=== PATIENT | female | born 1985 | race Caucasian/White ===

== ENCOUNTER 2021-07-12 11:41 | Outpatient (CLI) | payer OTHER | END 2021-07-12 12:23 | disposition home or self-care (01) | LOC: NST 11:41 | PROVIDERS: ATTEND Obstetrics & Gynecology | DX: Z34.83 Encounter for supervision of other normal pregnancy, third trimester (principal) ==

== ENCOUNTER 2021-07-16 11:28 | Outpatient (CLI) | payer OTHER | END 2021-07-16 12:24 | disposition home or self-care (01) | LOC: NST 11:28 | PROVIDERS: ATTEND Obstetrics & Gynecology Maternal & Fetal Medicine | DX: Z34.83 Encounter for supervision of other normal pregnancy, third trimester (principal) ==

== ENCOUNTER 2021-07-17 11:21 | Outpatient (CLI) | payer OTHER | END 2021-07-17 12:47 | disposition home or self-care (01) | LOC: NST 11:21 | PROVIDERS: ATTEND Obstetrics & Gynecology Maternal & Fetal Medicine | DX: Z34.83 Encounter for supervision of other normal pregnancy, third trimester (principal) ==

== ENCOUNTER 2021-07-19 11:01 | Outpatient (CLI) | payer OTHER ==
[2021-07-20] MEDS ORDERED: PRENATAL TABLE1 EAC1 PO (10:56)
[2021-07-20] MEDS ORDERED: IRON325 MG PO (10:58)
[2021-07-20] MEDS ORDERED: SYNTHROID150 MCG PO (11:05)
[2021-07-20] MEDS ORDERED: SYNTHROID175 MCG PO (11:10)
== END 2021-07-19 11:55 | disposition home or self-care (01) ==
LOC: NST 11:01
PROVIDERS: ATTEND Obstetrics & Gynecology Maternal & Fetal Medicine
DX: Z34.83 Encounter for supervision of other normal pregnancy, third trimester (principal)

== ENCOUNTER 2021-07-20 09:40 | Inpatient (IN) | payer OTHER ==
[~2021-07-20] VITALS: Ht 165.1 cm; Wt 81.6 kg
[2021-07-20] MEDS ORDERED: PRENATAL TABLE1 EAC1 PO (10:56)
[2021-07-20] MEDS ORDERED: IRON325 MG PO (10:58)
[2021-07-20] MEDS ORDERED: SYNTHROID150 MCG PO (11:05)
[2021-07-20] MEDS ORDERED: SYNTHROID175 MCG PO (11:10)
== END 2021-07-22 10:36 | disposition home or self-care (01) | DRG 807 ==
LOC: OB/GYN 09:40 → LDR 09:40 → OB/GYN 18:02
PROVIDERS: ADMIT Obstetrics & Gynecology Maternal & Fetal Medicine; ATTEND Obstetrics & Gynecology Maternal & Fetal Medicine
PROC: 10E0XZZ Delivery of Products of Conception, External Approach (ICD-10-PCS; principal; 2021-07-20)
PROC: 0UQG7ZZ Repair Vagina, Via Natural or Artificial Opening (ICD-10-PCS; 2021-07-20)
PROC: 10907ZC Drainage of Amniotic Fluid, Therapeutic from Products of Conception, Via Natural or Artificial Opening (ICD-10-PCS; 2021-07-20)
PROC: 3E033VJ Introduction of Other Hormone into Peripheral Vein, Percutaneous Approach (ICD-10-PCS; 2021-07-20)
PROC: 4A1HXFZ Monitoring of Products of Conception, Cardiac Rhythm, External Approach (ICD-10-PCS; 2021-07-20)
DX: O71.4 Obstetric high vaginal laceration alone (principal); Z37.0 Single live birth; O48.0 Post-term pregnancy; Z3A.39 39 weeks gestation of pregnancy

== ENCOUNTER 2023-06-26 09:00 | Inpatient (IN) | payer OTHER ==
[~2023-06-26] VITALS: Ht 165.1 cm; Wt 89.4 kg
[2023-07-20 11:09] LABS: HEMATOCRIT 34.3 % (36.0-45.00); HEMOGLOBIN 11.8 g/dL (12.0-15.00); MEAN CORPUSCULAR HEMOGLOBIN 31.3 pg (27.00-32.0); MEAN CORPUSCULAR HGB CONC 34.4 g/dl (32.0-36.0); PLATELET COUNT 184 K/uL (150-450); RED BLOOD COUNT 3.76 M/uL (4.00-6.00); RED CELL DISTRIBUTION WIDTH 13.7 % (11.5-14.5)
[2023-07-20 11:35] LABS: INR < 0.93; PARTIAL THROMBOPLASTIN TIME 23.4 SECONDS (22.0-34.0); PROTHROMBIN TIME 9.8 SECONDS (9.0-11.5)
[2023-07-20 11:52] LABS: ALBUMIN 2.9 gm/dL (3.4-5.0); BILIRUBIN TOTAL 0.41 mg/dL (0.3-1.2); CALCIUM 9.2 mg/dL (8.5-10.1); CREATININE SERUM 0.56 mg/dL (0.55-1.02); GFR 122.49; GLOBULINA 3.4 G/DL (2.4-3.5); POTASSIUM 4.04 mEq/L (3.5-5.1); TOTAL PROTEIN 6.3 gm/dL (6.4-8.2); TSH 1.07 uIU/mL (0.358-3.74)
[2023-07-23 09:54] LABS: HEMATOCRIT 30.6 % (36.0-45.00); HEMOGLOBIN 10.5 g/dL (12.0-15.00); MEAN CELL VOLUME 93.3 fL (80.00-100.00); MEAN CORPUSCULAR HEMOGLOBIN 31.8 pg (27.00-32.0); MEAN CORPUSCULAR HGB CONC 34.1 g/dl (32.0-36.0); PLATELET COUNT 174 K/uL (150-450); RED BLOOD COUNT 3.28 M/uL (4.00-6.00); RED CELL DISTRIBUTION WIDTH 13.8 % (11.5-14.5)
[2023-07-23] MEDS ORDERED: SYNTHROID150 MCG PO (14:06)
[2023-07-23] MEDS ORDERED: SYNTHROID175 MCG PO (14:06)
[2023-07-23] MEDS ORDERED: IRON325 MG (14:06)
[2023-07-23] MEDS ORDERED: PRENATAL TABLE1 EAC1 (14:06)
[2023-07-24] MEDS ORDERED: OXYC1TAB9 PO (07:52)
[2023-07-24] MEDS ORDERED: KETO10TA2 PO (07:52)
== END 2023-07-24 13:21 | disposition home or self-care (01) | DRG 788 ==
LOC: O/R 07-22 07:43 → OB/GYN 07-22 07:43
PROVIDERS: ADMIT Obstetrics & Gynecology Maternal & Fetal Medicine; ATTEND Obstetrics & Gynecology Maternal & Fetal Medicine
PROC: 4A1HXCZ Monitoring of Products of Conception, Cardiac Rate, External Approach (ICD-10-PCS; 2023-07-22)
PROC: 10D00Z1 Extraction of Products of Conception, Low, Open Approach (ICD-10-PCS; principal; 2023-07-22 09:30)
DX: O32.1XX0 Maternal care for breech presentation, not applicable or unspecified (principal); Z3A.36 36 weeks gestation of pregnancy; Z37.0 Single live birth; Z20.822 Contact with and (suspected) exposure to COVID-19

== ENCOUNTER 2023-07-15 10:56 | Outpatient (CLI) | payer OTHER ==
[~2023-07-15 10:56] MED LIST: IRON325 MG PO; PRENATAL TABLE1 EAC1 PO; SYNTHROID150 MCG PO; SYNTHROID175 MCG PO
== END 2023-07-15 12:00 | disposition home or self-care (01) ==
LOC: NST 10:56
PROVIDERS: ATTEND Obstetrics & Gynecology Maternal & Fetal Medicine
DX: Z34.83 Encounter for supervision of other normal pregnancy, third trimester (principal)